=== PATIENT | male | born 1955 | race African-American/Black ===

== ENCOUNTER 2021-11-18 09:07 | Emergency (ER) | payer MEDICARE, MEDICAID, SELFPAY ==
--- NOTE | 2021-11-18 09:12 | ED.URI ---
HPI - URI/Sore Throat General Chief Complaint: Upper Respiratory Infection Stated Complaint: cough congestion Time Seen by Provider: 11/18/21 09:30 Source: patient and RN notes reviewed Mode of arrival: ambulatory Limitations: no limitations History of Present Illness HPI Narrative: 65-year-old male with history of COPD presents with concern for cough, body aches, shortness of breath that is worse than his usual shortness of breath. Reports that fever started today. He reports symptoms have been happening for 5 days. Reports he used his albuterol nebulizer this morning and used his albuterol inhaler prior to arrival. MD elicited complaint: cough (Shortness of breath) Related Data Home Medications Medication Instructions Recorded Confirmed albuterol sulfate 90 mcg/actuation 1 puff inhalation Q4H PRN Dyspnea 08/18/19 11/18/21 aerosol inhaler amlodipine 10 mg tablet 10 mg PO DAILY 08/18/19 11/18/21 aspirin 81 mg tablet 81 mg PO DAILY 08/18/19 11/18/21 budesonide-formoterol HFA 160 2 puff inhalation Q12H 08/18/19 11/18/21 mcg-4.5 mcg/actuation aerosol inhaler (Symbicort) clonazepam 0.5 mg tablet 0.5 mg PO BID 08/18/19 11/18/21 gabapentin 600 mg tablet 600 mg PO BID 08/18/19 11/18/21 hydroxyzine HCl 25 mg tablet 25 mg PO TID 08/18/19 11/18/21 glipizide 10 mg tablet 10 tablet PO DAILY 11/18/21 11/18/21 valsartan 80 mg tablet 80 tablet PO DAILY 11/18/21 11/18/21 Allergies Allergy/AdvReac Type Severity Reaction Status Date / Time No Known Allergies Allergy Verified 11/18/21 09:26 Review of Systems Review of Systems: CONSTITUTIONAL: Report malaise, low-grade fever. EYES: Denies visual changes, redness, or discharge. ENT: Reports rhinorrhea, congestion. Denies sinus pain, otalgia and sore throat. CARDIOVASCULAR: Denies chest pain, palpitations, or edema. RESPIRATORY: Reports cough, worsening dyspnea. GASTROINTESTINAL: Denies abdominal pain, nausea, vomiting, diarrhea SKIN: Denies rash or itching. MUSCULOSKELETAL: Denies myalgia. NEUROLOGIC: Denies headache. All systems reviewed & are unremarkable except as noted in HPI and below PMFSH Past Medical History Medical History (Updated 11/18/21 @ 09:39 by Neida Jin NP) Anxiety COPD (chronic obstructive pulmonary disease) Depression Diabetes Family History Family History Mother No problems noted. Father No problems noted. Social History Social History Smoking status: Never smoker Alcohol intake: never Substance use: never Comments At time of signature, agree with nursing past medical, surgical, social and family history. There is no relevant family history pertinent to the presenting complaint Exam Narrative: GENERAL: Nontoxic-appearing and in no acute distress. HEAD: Normocephalic EYES: PERRLA, conjunctivae clear ENT: Nares clear, turbinates edematous and erythematous, clear discharge. Mucous membranes moist. TM pearly marr with dull light reflex bilaterally; no tragal tenderness. Oropharynx not erythematous without lesions. Tonsils not enlarged and without exudate, no drooling, no hoarseness, no trismus, uvula midline. NECK: Supple. No lymphadenopathy CHEST: Expiratory wheeze throughout, aeration fair. No rales or stridor. No respiratory distress, speaks in full sentences. HEART: Regular rate and rhythm. No murmur heard. SKIN: Warm, dry, no rash. NEURO: Alert and oriented x3. PSYCH: Normal mood and affect Course Course Emergency Course: Patient is aware of diagnosis, understands and agrees to treatment plan. Anticipatory guidance given. Patient agrees to follow-up as directed and is aware of reasons to seek care at the emergency department. Portions of this record may have been created with voice recognition software Level of Care: Express Care Visit Vital Signs Vital signs: Reviewed. MDM
[2021-11-18 09:14] VITALS: BP 130/71; PULSE 100; RESP 20; TEMP 37.3; O2SAT 96
== END 2021-11-18 09:49 | disposition home or self-care (01) ==
PROVIDERS: Emergency Provider Nurse Practitioner
DX: J44.1 Chronic obstructive pulmonary disease with (acute) exacerbation (principal); E11.9 Type 2 diabetes mellitus without complications; F41.9 Anxiety disorder, unspecified
CPT/HCPCS: 99213; G0463

== ENCOUNTER 2022-05-18 10:38 | Emergency (ER) | payer MEDICARE, MEDICAID, SELFPAY ==
[2022-05-18 10:45] VITALS: BP 151/87; PULSE 106; RESP 44; TEMP 37.7; O2SAT 87
[2022-05-18 10:46] VITALS: O2SAT 91
--- NOTE | 2022-05-18 11:02 | ED.URI ---
HPI - URI/Sore Throat General Chief Complaint: Shortness of Breath/Dyspnea Stated Complaint: Shortness of Breath Time Seen by Provider: 05/18/22 10:38 Source: patient, family, RN notes reviewed and old records reviewed Mode of arrival: wheelchair Limitations: no limitations History of Present Illness HPI Narrative: 66-year-old male accompanied by presents to Express Care with acute respiratory distress, placed in wheelchair at registration desk and to room 1 assisted to bed. Patient reports history of chronic lung problems states he wants some steroids and he is going home, he is not going to the hospital.Patient states he was just in the hospital not too long ago. reports that patient was in the hospital about 2-3 weeks ago and had sepsis, he came home with IV antibiotics per midline for a week. states that patient recently diagnosed with prostate cancer but health too bad to undergo surgery is suppose to start radiation. reports high fever of 103F yesterday. Patient placed on O2 at 6L with SATs increasing to 90%. Ambulance here for transfer and convinced patiet he needed to go to hospital he was then agreeable. MD elicited complaint: cough and other (acute dyspnea) Pertinent past history: pneumonia, COPD, asthma and other (recent sepsis) Onset (ago): day(s) (increasing symptoms past 24 hours) Treatments prior to arrival: other (inhalers) Related Data Home Medications Medication Instructions Recorded Confirmed albuterol sulfate 90 mcg/actuation 1 puff inhalation Q4H PRN Dyspnea 08/18/19 11/18/21 aerosol inhaler amlodipine 10 mg tablet 10 mg PO DAILY 08/18/19 11/18/21 aspirin 81 mg tablet 81 mg PO DAILY 08/18/19 11/18/21 budesonide-formoterol HFA 160 2 puff inhalation Q12H 08/18/19 11/18/21 mcg-4.5 mcg/actuation aerosol inhaler (Symbicort) clonazepam 0.5 mg tablet 0.5 mg PO BID 08/18/19 11/18/21 gabapentin 600 mg tablet 600 mg PO BID 08/18/19 11/18/21 hydroxyzine HCl 25 mg tablet 25 mg PO TID 08/18/19 11/18/21 glipizide 10 mg tablet 10 tablet PO DAILY 11/18/21 11/18/21 valsartan 80 mg tablet 80 tablet PO DAILY 11/18/21 11/18/21 Allergies Allergy/AdvReac Type Severity Reaction Status Date / Time No Known Allergies Allergy Verified 11/18/21 09:26 Review of Systems Review of Systems: CONSTITUTIONAL: Reports fever, chills, or sweats. EYES: Denies visual changes, redness, or discharge. ENT: Denies rhinorrhea, congestion, sore throat, or otalgia. CARDIOVASCULAR: Denies chest pain, palpitations, or edema. RESPIRATORY: Reports cough and dyspnea increasing today GASTROINTESTINAL: Denies abdominal pain, nausea, vomiting, or diarrhea. GENITOURINARY: Denies dysuria or hematuria. SKIN: Denies rash or itching. MUSCULOSKELETAL: Denies back pain, joint pain, or myalgia. NEUROLOGIC: Denies headache, numbness, or weakness. PSYCHIATRIC: Reports anxiety or depression. All systems reviewed & are unremarkable except as noted in HPI and below PMFSH Past Medical History Medical History Anxiety COPD (chronic obstructive pulmonary disease) Depression Diabetes Hypertension Prostate cancer Family History Family History Mother No problems noted. Father No problems noted. Social History Social History Smoking status: Never smoker Alcohol intake: never Substance use: never Comments At time of signature, agree with nursing past medical, surgical, social and family history. There is no relevant family history pertinent to the presenting complaint Exam Narrative: GENERAL: Chronic ill appearing, well-nourished, and in no acute distress. HEAD: Normocephalic, atraumatic. EYES: PERRLA and EOMI. ENT: Nares clear, no rhinorrhea or epistaxis. Mucous membranes moist.TM's normal with good light relfex, throat pink with no l
== END 2022-05-18 11:05 | disposition short-term general hospital (02) ==
LOC: EXPBETH 10:40
PROVIDERS: Emergency Provider Registered Nurse
DX: J44.1 Chronic obstructive pulmonary disease with (acute) exacerbation (principal); E11.9 Type 2 diabetes mellitus without complications; F41.9 Anxiety disorder, unspecified; Z79.82 Long term (current) use of aspirin
CPT/HCPCS: 99215; G0463

== ENCOUNTER 2022-09-23 11:01 | Emergency (ER) | payer MEDICARE, MEDICAID, SELFPAY ==
--- NOTE | ~2022-09-23 | XR_ITS ---
Clinical Indication: Cough PA and lateral views of the chest: Comparison: 06/27/2017 Findings: The lungs are clear, without evidence of focal consolidation or pleural effusion. Cardiome diastinal silhouette is within normal limits. Bones and soft tissues are unremarkable. Impression: Normal chest. Reviewed, dictated and finalized at [facility]. Impression: Normal chest.
[2022-09-23 11:10] VITALS: BP 137/80; PULSE 96; RESP 20; TEMP 37.1; O2SAT 98
--- NOTE | 2022-09-23 12:18 | ED.URI ---
HPI - URI/Sore Throat General Chief Complaint: Upper Respiratory Infection Stated Complaint: cold/flu Time Seen by Provider: 09/23/22 12:18 Source: patient, family, RN notes reviewed and old records reviewed Mode of arrival: ambulatory Limitations: no limitations History of Present Illness HPI Narrative: 66 year old male presents to [facility] care with complaints of cough and nasal congestion for 2 weeks and he is a little more short of breath than usual since yesterday. Patient has history of COPD and is on home oxygen at 2-3 liters per nasal cannula. Patient reports that he just needs an antibiotic he is just sick.Patient states that he needs the antibiotic they usually give him at his doctors office that usually does the trick. Patient has scattered wheezes throughout airfields, able to speak in full sentences, cough is dry and patient denies any known fevers, chills or sweats. Patient refused duo neb treatment in clinic reports he can do at home. MD elicited complaint: cough, rhinorrhea, nasal congestion and other (dyspnea) Pertinent past history: pneumonia and COPD Onset (ago): week(s) (2 weeks nasal congestion and drainage and increased cough, increase dyspnea since yesterday) Severity: moderate Able to tolerate fluids by mouth: Yes Treatments prior to arrival: acetaminophen and other (Duo-Neb last night,NyQuil, inhalers at 0800) Related Data Home Medications Medication Instructions Recorded Confirmed amlodipine 10 mg tablet 10 mg PO DAILY 08/18/19 09/23/22 aspirin 81 mg tablet 81 mg PO DAILY 08/18/19 09/23/22 budesonide-formoterol HFA 160 2 puff inhalation Q12H 08/18/19 09/23/22 mcg-4.5 mcg/actuation aerosol inhaler (Symbicort) clonazepam 0.5 mg tablet 0.5 mg PO BID 08/18/19 09/23/22 gabapentin 600 mg tablet 600 mg PO BID 08/18/19 09/23/22 hydroxyzine HCl 25 mg tablet 25 mg PO TID 08/18/19 09/23/22 glipizide 10 mg tablet 10 tablet PO DAILY 11/18/21 09/23/22 valsartan 80 mg tablet 80 tablet PO DAILY 11/18/21 09/23/22 ipratropium 0.5 mg-albuterol 3 mg 3 ml inhalation DIRECTED 09/23/22 09/23/22 (2.5 mg base)/3 mL nebulization soln metformin 500 mg tablet 500 mg PO DIRECTED 09/23/22 09/23/22 tamsulosin 0.4 mg capsule 0.4 mg PO DIRECTED 09/23/22 09/23/22 Allergies Allergy/AdvReac Type Severity Reaction Status Date / Time No Known Allergies Allergy Verified 09/23/22 11:20 Review of Systems Review of Systems: CONSTITUTIONAL: Denies fever, chills, or sweats. EYES: Denies visual changes, redness, or discharge. ENT: Reports rhinorrhea, congestion, no sore throat, or otalgia. CARDIOVASCULAR: Denies chest pain, palpitations, or edema. RESPIRATORY: Reports increased cough and dyspnea. GASTROINTESTINAL: Denies abdominal pain, nausea, vomiting, or diarrhea. GENITOURINARY: Denies dysuria or hematuria. SKIN: Denies rash or itching. MUSCULOSKELETAL: Denies back pain, joint pain, or myalgia. NEUROLOGIC: Denies headache, numbness, or weakness. PSYCHIATRIC: history of anxiety or depression. All systems reviewed & are unremarkable except as noted in HPI and below PMFSH Past Medical History Medical History Anxiety COPD (chronic obstructive pulmonary disease) Depression Diabetes Hypertension Prostate cancer Family History Family History Mother No problems noted. Father No problems noted. Social History Social History Smoking status: Never smoker Alcohol intake: never Substance use: never Comments At time of signature, agree with nursing past medical, surgical, social and family history. There is no relevant family history pertinent to the presenting complaint Exam Narrative: GENERAL:chronic ill-appearing, well-nourished, and in no acute distress. HEAD: Normocephalic, atraumatic. EYES: PERRLA and EOMI.
== END 2022-09-23 12:31 | disposition home or self-care (01) ==
PROVIDERS: Emergency Provider Registered Nurse; PCP Internal Medicine
DX: J44.9 Chronic obstructive pulmonary disease, unspecified (principal); E11.9 Type 2 diabetes mellitus without complications
CPT/HCPCS: 71046; 99213; G0463

== ENCOUNTER 2022-12-19 13:32 | Emergency (ER) | payer MEDICARE, MEDICAID, SELFPAY ==
--- NOTE | 2022-12-19 13:40 | ED.URI ---
HPI - URI/Sore Throat General Chief Complaint: Upper Respiratory Infection Stated Complaint: Shortness of Breath/Chest Congestion Source: patient, family and RN notes reviewed History of Present Illness HPI Narrative: 67 yo M presents to urgent care with at side. Pt states he developed congestion yesterday and it's getting worse. Pt states his cough is worse and it started being productive but now states it's stuck in his chest and in his face. Pt reports chills last night. Reports increased SOB and chest pain when he coughs. Denies any fevers, vomiting, sore throat, or ear pain. Pt states he just needs a strong antibiotic before he develops PNA and ends up in the ER. Pt states he couldn't get into his PCP b/c she is no vacation and his cascade operator was unavailable as well. Related Data Home Medications Medication Instructions Recorded Confirmed amlodipine 10 mg tablet 10 mg PO DAILY 08/18/19 09/23/22 aspirin 81 mg tablet 81 mg PO DAILY 08/18/19 09/23/22 budesonide-formoterol HFA 160 2 puff inhalation Q12H 08/18/19 09/23/22 mcg-4.5 mcg/actuation aerosol inhaler (Symbicort) clonazepam 0.5 mg tablet 0.5 mg PO BID 08/18/19 09/23/22 gabapentin 600 mg tablet 600 mg PO BID 08/18/19 09/23/22 hydroxyzine HCl 25 mg tablet 25 mg PO TID 08/18/19 09/23/22 glipizide 10 mg tablet 10 tablet PO DAILY 11/18/21 09/23/22 valsartan 80 mg tablet 80 tablet PO DAILY 11/18/21 09/23/22 ipratropium 0.5 mg-albuterol 3 mg 3 ml inhalation DIRECTED 09/23/22 09/23/22 (2.5 mg base)/3 mL nebulization soln metformin 500 mg tablet 500 mg PO DIRECTED 09/23/22 09/23/22 tamsulosin 0.4 mg capsule 0.4 mg PO DIRECTED 09/23/22 09/23/22 Allergies Allergy/AdvReac Type Severity Reaction Status Date / Time No Known Allergies Allergy Verified 09/23/22 11:20 Review of Systems Review of Systems: CONSTITUTIONAL: Denies fever, chills, or sweats. EYES: Denies visual changes, redness, or discharge. ENT: Congestion CARDIOVASCULAR: Denies chest pain, palpitations, or edema. RESPIRATORY: Admits to cough or dyspnea. GASTROINTESTINAL: Denies abdominal pain, nausea, vomiting, or diarrhea. GENITOURINARY: Denies dysuria or hematuria. SKIN: Denies rash or itching. NEUROLOGIC: Denies headache, numbness, or weakness. Pertinent positives per HPI. [facility] Past Medical History Medical History Anxiety COPD (chronic obstructive pulmonary disease) Depression Diabetes Hypertension Prostate cancer Family History Family History Mother No problems noted. Father No problems noted. Social History Social History Smoking status: Never smoker Alcohol intake: never Substance use: never Comments At the time of my signature, I reviewed and agree with the nursing past medical, surgical, social, and family history. There is no relevant family history pertinent to the patient complaint. Exam Narrative: GENERAL: This is a well-nourished, well-developed patient, in no apparent distress. HEAD: normocephalic, atraumatic. EYES: Sclera clear/white. Vision is grossly intact. EARS: External ears normal, auditory canals clear and without drainage, TMs normal without perforation. Hearing grossly intact. NOSE: External nose normal with no obvious nasal discharge, nares without redness, no rhinorrhea. THROAT: Mucous membranes moist, posterior pharynx clear. NECK: Neck supple, non-tender without lymphadenopathy, masses or thyromegaly. CARDIOVASCULAR: Regular rate and rhythm without murmurs, gallops, or rubs. RESPIRATORY: Rhonchi throughout. SKIN: warm, intact with no suspicious lesions or rash, good texture and turgor. NEURO: awake, alert, and oriented to person, place and time. There were no obvious focal neurologic abnormalities. Course Course Lev
[2022-12-19 13:41] VITALS: BP 138/67; PULSE 91; RESP 20; TEMP 36.4; O2SAT 94
[2022-12-19 13:42] VITALS: BP 138/67; PULSE 91; RESP 20; TEMP 36.4; O2SAT 94
== END 2022-12-19 13:54 | disposition home or self-care (01) ==
PROVIDERS: Emergency Provider Nurse Practitioner Family; PCP Internal Medicine
DX: J40 Bronchitis, not specified as acute or chronic (principal); J32.9 Chronic sinusitis, unspecified; J44.9 Chronic obstructive pulmonary disease, unspecified; E11.9 Type 2 diabetes mellitus without complications; I10 Essential (primary) hypertension; F41.9 Anxiety disorder, unspecified; Z85.46 Personal history of malignant neoplasm of prostate; Z79.82 Long term (current) use of aspirin
CPT/HCPCS: 99213; G0463

== ENCOUNTER 2023-01-17 12:45 | Emergency (ER) | payer MEDICARE, MEDICAID, SELFPAY ==
--- NOTE | ~2023-01-17 | XR_ITS ---
EXAMINATION: XR chest 2V DATE: 01/17/2023 13:16 INDICATION: Shortness of breath and cough TECHNIQUE: PA and lateral views of the chest are obtained. COMPARISON: 09/23/2022 FINDINGS: There are minimal airspace opacities of the left lung base. There is a small left pleural e ffusion. No pneumothorax is identified. The cardiomediastinal silhouette is normal. There is mild tho racic spondylosis. IMPRESSION: 1. Minimal left basilar airspace opacity, consistent with atelectasis versus pneumonia. 2. Small left pleural effusion. Reviewed, dictated and finalized at location A. IMPRESSION: 1. Minimal left basilar airspace opacity, consistent with atelectasis versus pn eumonia. 2. Small left pleural effusion.
[2023-01-17 12:58] VITALS: BP 139/84; PULSE 99; RESP 20; TEMP 36.9; O2SAT 98
[2023-01-17] MEDS: ALBUTEROL SULFATE NEB 2.5 MG/3 ML INH INHALATION (13:29)
[2023-01-17] MEDS: IPRATROPIUM BR 0.02% INH SOLN 0.5 MG/2.5 ML VIAL INHALATION (13:30)
--- NOTE | 2023-01-17 13:30 | ED.GENADULT ---
HPI - General Adult General Chief complaint: Shortness of Breath/Dyspnea Stated complaint: breathing prob Source: patient Mode of arrival: ambulatory Limitations: no limitations History of Present Illness HPI narrative: Patient presents for evaluation of respiratory symptoms since yesterday. Reports nonproductive cough and shortness of breath. He has an underlying history of COPD and is on 3 L of oxygen at home. States that he had some nasal congestion, fever and chills yesterday. Now he has some pleuritic chest pain. Denies chest pain otherwise. Denies any leg swelling. No nausea, vomiting or diarrhea. No recent sick contacts. He is a former smoker. He states when he has had upper respiratory symptoms in the past it causes a flare of his COPD. He is diabetic. Most recent BS at home have been in 150's. Related Data Home Medications Medication Instructions Recorded Confirmed amlodipine 10 mg tablet 10 mg PO DAILY 08/18/19 01/17/23 aspirin 81 mg tablet 81 mg PO DAILY 08/18/19 01/17/23 budesonide-formoterol HFA 160 2 puff inhalation Q12H 08/18/19 01/17/23 mcg-4.5 mcg/actuation aerosol inhaler (Symbicort) clonazepam 0.5 mg tablet 0.5 mg PO BID 08/18/19 01/17/23 gabapentin 600 mg tablet 600 mg PO BID 08/18/19 01/17/23 hydroxyzine HCl 25 mg tablet 25 mg PO TID 08/18/19 01/17/23 glipizide 10 mg tablet 10 tablet PO DAILY 11/18/21 01/17/23 valsartan 80 mg tablet 80 tablet PO DAILY 11/18/21 01/17/23 ipratropium 0.5 mg-albuterol 3 mg 3 ml inhalation DIRECTED 09/23/22 01/17/23 (2.5 mg base)/3 mL nebulization soln metformin 500 mg tablet 500 mg PO DIRECTED 09/23/22 01/17/23 tamsulosin 0.4 mg capsule 0.4 mg PO DIRECTED 09/23/22 01/17/23 Allergies Allergy/AdvReac Type Severity Reaction Status Date / Time No Known Allergies Allergy Verified 01/17/23 13:03 Review of Systems Review of Systems: CONSTITUTIONAL:Reports fever and chills yesterday. Denies fever or chills today. Denies sweats. EYES: Denies visual changes, redness, or discharge. ENT: Reports sinus congestion. Denies rhinorrhea, sore throat, or otalgia. CARDIOVASCULAR:Reports pleuritic chest pain. Denies chest pain otherwise. Denies palpitations or edema. RESPIRATORY: Reports cough and SOB GASTROINTESTINAL: Denies abdominal pain, nausea, vomiting, or diarrhea. GENITOURINARY: Denies dysuria or hematuria. SKIN: Denies rash or itching. MUSCULOSKELETAL: Denies back pain, joint pain, or myalgia. NEUROLOGIC: Denies headache, numbness, dizziness, or weakness. PSYCHIATRIC: Denies anxiety or depression. [facility] Past Medical History Medical History (Updated 01/18/23 @ 00:00 by Jan Alcaraz) Anxiety COPD (chronic obstructive pulmonary disease) Depression Diabetes Hypertension Prostate cancer Surgical History Surgical History (Updated 01/17/23 @ 13:35 by Joseph Sales, JEANNE, ) No pertinent past surgical history Family History Family History Mother No problems noted. Father No problems noted. Social History Social History Smoking status: Former smoker Alcohol intake: never Substance use: never Gender identity (if verbalized by the patient): Male Spiritual care concerns: No Exam Narrative: GENERAL: Well-appearing, well-nourished, and in no acute distress. HEAD: Normocephalic, atraumatic. EYES: PERRLA and EOMI. ENT: Nares clear, no rhinorrhea or epistaxis. Mucous membranes moist. Oropharynx without tonsillar hypertrophy exudate or other lesions. Bilateral TMs pearly marr nonbulging NECK: Supple. No adenopathy or masses. No carotid bruits or JVD CHEST: Wheezing noted in all lung shoemaker anteriorly and posteriorly. O2 3 L per nasal cannula. Cough present on exam. HEART: Regular rate and rhythm. No murmur heard. Normal peripheral pulses. ABDOMEN: Soft, nont
== END 2023-01-17 13:56 | disposition home or self-care (01) ==
PROVIDERS: Emergency Provider Nurse Practitioner; PCP Internal Medicine
DX: J44.1 Chronic obstructive pulmonary disease with (acute) exacerbation (principal); J18.9 Pneumonia, unspecified organism; Z87.891 Personal history of nicotine dependence; E11.9 Type 2 diabetes mellitus without complications; Z79.84 Long term (current) use of oral hypoglycemic drugs; I10 Essential (primary) hypertension; F41.9 Anxiety disorder, unspecified; Z85.46 Personal history of malignant neoplasm of prostate; Z79.82 Long term (current) use of aspirin; Z99.81 Dependence on supplemental oxygen
CPT/HCPCS: 71046; 94640; 96372; 99213; G0463; J1100